=== PATIENT | male | born 1960 | race Caucasian/White ===

== ENCOUNTER 2017-03-14 13:00 | Observation (INO) | payer OTHER ==
[~2017-03-14] VITALS: Ht 172.7 cm; Wt 88.0 kg
[~2017-03-14 13:00] MED LIST: ALBU8.5H3 INH; AMLO10TA62 PO; LOSA1TAB23 PO; METO-104 PO; METO100T93 PO; MULT-806 PO; OMEP-29 PO; PLAVIX; QUET25TA19 PO; TRICOR; [UNRECOGNIZED DRUG - CODE] PO
--- OUTSIDE RECORDS SUMMARY | 2017-03-14 13:14 | XMS REPORT ---
Author Author Alfredo West Organization [employer] Address Unknown Phone Unavailable Care Team Providers Care Forensic Technician Name Role Phone Alfredo West CP Unavailable Allergies No Known Allergies Problems Problem Type Condition Code Onset Dates Condition Status Problem Coronary Artery Disease 414.01 Active Problem Chest pain 786.50 Active Problem Dyslipidemia 272.4 Active Problem Hypertension 401.9 Active Problem Family history of ischemic heart disease V17.3 Active Medications Medication Code System Code Instructions Start Date End Date Status Dosage Lab Order NDC 0 Orders Nov 02, 2015 as directed Results No Known Results Summary Purpose [employer] Submission
--- OUTSIDE RECORDS SUMMARY | 2017-03-14 13:14 | XMS REPORT | Continuity of Care Document ---
Author Author [facility] Organization [facility] Address Unknown Phone Unavailable Allergies Active Description Code Type Severity Reaction Onset Reported/Identified Relationship to Patient Clinical Status Yes NKDA N/A N/A Yes No Known Drug Intolerances No Known Drug Intolerances Drug Allergy Unknown N/A 10/06/2006 Yes No Known Drug Allergies No Known Drug Allergies Drug Allergy Unknown nkda 03/21/2014 Yes No Known Drug Intolerances No Known Drug Intolerances Drug Allergy Unknown . 03/21/2014 Yes No Known Drug Allergies No Known Drug Allergies Drug Allergy Unknown U 03/31/2014 Yes No Known Drug Allergies No Known Drug Allergies Drug Allergy Unknown U 03/31/2014 Yes No Known Allergies No Known Allergies Drug Allergy Unknown N/A 06/10/2016 Medications Problems Date Dx Coded Attending Type Code Diagnosis Diagnosed By 05/13/2016 F M24.431 Recurrent dislocation, right wrist Procedures Code Description Performed By Performed On 37.22 LEFT HEART CARDIAC CATH Alfredo West MD 03/21/2014 88.57 CORONARY ARTERIOGRAM NEC Jenna TREJO, Alfredo 03/21/2014 00.24 INTRAVASCULAR IMAGING OF CORONARY VESSELS Main Daley MD 03/31/2014 00.41 PROCEDURE ON TWO VESSELS Main Daley MD 03/31/2014 00.45 INSERTION OF ONE VASCULAR STENT Main Daley MD 03/31/2014 00.66 PERCUTANEOUS TRANSLUMINAL CORONARY ANGIOPLASTY [PT Main Daley MD 03/31/2014 36.07 INSRT OF DRUG-ELUTING CORON ARTERY STENTS(S) Main Daley MD 03/31/2014 37.22 LEFT HEART CARDIAC CATH Alfredo West MD 04/28/2014 88.53 LT HEART ANGIOCARDIOGRAM Alfredo West MD 04/28/2014 88.56 CORONAR ARTERIOGR-2 CATH Alfredo West MD 04/28/2014 Results Test Result Range CBC - 03/21/14 06:50 MEAN CELL HGB 30.9 pg 27.0-33.0 MEAN CELL HGB CONCENTRATION 35.9 g/dL 32.0-37.0 MEAN CELL VOLUME 85.9 fl 80.0-100.0 RED BLOOD CELL 5.05 m/cumm 4.00-6.00 RED CELL DISTRIBUTION WIDTH 12.9 % 11.0- 15.6 WHITE BLOOD CELL 7.5 k/cumm 5.0-10.0 HEMOGLOBIN 15.6 gm/dL 14.0-18.0 HEMATOCRIT 43.4 % 40.0-54.0 PLATELET COUNT 197 k/cumm 150-400 PROTHROMBIN TIME WITH INR - 03/21/14 06:50 INTERNATIONAL NORMAL RATIO 0.9 0.9-1.1 PROTHROMBIN TIME 10.3 sec 9.3-12.2 PARTIAL THROMBOPLASTIN TIME - 03/21/14 06:50 PARTIAL THROMBOPLASTIN TIME 28 sec 24-36 METABOLIC PANEL, COMPREHN - 03/21/14 06:50 POTASSIUM 3.3 mmol/L 3.5-5.3 EST GFR (MDRD) > 60 mL/min > 59 ANION GAP 5 mmol/L 5-15 EST CrCl (CG) > 60 mL/min > 59 GLUCOSE 157 mg/dL 70-99 CALCIUM 8.4 mg/dL 8.5-10.1 BLOOD UREA NITROGEN 14 mg/dL 7-20 CREATININE 1.0 mg/dL 0.8-1.3 SODIUM 137 mmol/L 135-148 CHLORIDE 102 mmol/L 98-110 AST/SGOT 10 Units/L 10-37 ALT/SGPT 42 Units/L < 66 CARBON DIOXIDE 30 mmol/L 21-32 TOTAL PROTEIN 7.1 gm/dL 6.4-8.2 ALBUMIN 3.7 gm/dL 3.4-5.0 BILI TOTAL 0.4 mg/dL 0.0-1.0 ALKALINE PHOSPHATASE TOTAL 52 IU/L 45- 117 LIPID PANEL - 03/21/14 06:50 CHOLESTEROL/HDL RATIO 8.0 < 5.0 COMMENT LDL CHOLESTEROL TEST NOT PERFORMED mg/dL < 100 TRIGLYCERIDES 548 mg/dL < 150 CHOLESTEROL 223 mg/dL < 200 HDL CHOLESTEROL 28 mg/dL > 39 METABOLIC PANEL, BASIC - 03/31/14 10:40 POTASSIUM 3.7 mmol/L 3.5-5.3 EST GFR (MDRD) > 60 mL/min > 59 ANION GAP 8 mmol/L 5-15 GLUCOSE 184 mg/dL 70-99 CALCIUM 8.8 mg/dL 8.5-10.1 BLOOD UREA NITROGEN 15 mg/dL 7-20 CREATININE 1.0 mg/dL 0.8-1.3 SODIUM 137 mmol/L 135-148 CHLORIDE 103 mmol/L 98-110 CARBON DIOXIDE 26 mmol/L METABOLIC PANEL, BASIC - 04/01/14 06:12 POTASSIUM 4.3 mmol/L 3.5-5.3 EST GFR (MDRD) > 60 mL/min > 59 ANION GAP 5 mmol/L 5-15 GLUCOSE 171 mg/dL 70-99 CALCIUM 9.1 mg/dL 8.5-10.1 BLOOD UREA NITROGEN 17 mg/dL 7-20 CREATININE 1.1 mg/dL 0.8-1.3 SODIUM 139 mmol/L 135-148 CHLORIDE 102 mmol/L 98-110 CARBON DIOXIDE 32 mmol/L - METABOLIC PANEL, BASIC - 04/28/14 10:45 POTASSIUM 3.6 mmol/L 3.5-5.3 EST GFR (MDRD) > 60 mL/min > 59 ANION GAP 9 mmol/L 5-15 GLUCOSE 161 mg/dL 70-99 CALCIUM 9.3 mg/dL 8.5-10.1 BLOOD UREA NITROGEN 17 mg/dL 7-20 CREATININE 1.1 mg/dL 0.8-1.3 SODIUM 139 mmol/L 135-148 CHLORIDE 103 mmol/L 98-110 CARBON DIOXIDE 27 mmol/L - CBC W/DIFF - 06/10/16 13:20 EOSINOPHIL # 0.2 k/cumm 0.1-0.5 EOSINOPHIL % 4 % 2-4 GRANULOCYTE # 3.9 k/cumm 2.0-9.0 GRANULOCYTE % 58 % 50-75 LYMPHOCYTE # 2.0 k/cumm 1.0-4.0 LYMPHOCYTE % 29 % 20-30 MEAN CELL HGB 30.1 pg 27.0-33.0 MEAN CELL HGB CONCENTRATION 36.0 g/dL 32.0-37.0 MEAN CELL VOLUME 83.7 fl 80.0-100.0 MONOCYTE # 0.6 k/cumm 0.1-1.0 MONOCYTE % 9 % 4-6 RED BLOOD CELL 5.15 m/cumm 4.00-6.00 RED CELL DISTRIBUTION WIDTH 12.9 % 11.0- 15.6 WHITE BLOOD CELL 6.7 k/cumm 5.0-10.0 HEMOGLOBIN 15.5 gm/dL 14.0-18.0 HEMATOCRIT 43.1 % 40.0-54.0 PLATELET COUNT 255 k/cumm 150-400 CHEM/HEM PROFILE-BEDSIDE - 06/10/16 13:22 POTASSIUM 3.6 mmol/L 3.5-5.3 METHOD Bedside ANION GAP 15 mmol/L 10-20 METHOD Bedside GLUCOSE 205 mg/dL 70-99 BLOOD UREA NITROGEN 15 mg/dL 7-20 CREATININE 0.8 mg/dL 0.7-1.3 HEMOGLOBIN 15.0 gm/dL 14.0-18.0 HEMATOCRIT 44.0 % 40.0-54.0 SODIUM 136 mmol/L 135-148 CHLORIDE 100 mmol/L 98-110 CARBON DIOXIDE 25 mmol/L 21-32 CALCIUM IONIZED 4.9 mg/dL 4.5-5.3 TROPONIN I BEDSIDE - 06/10/16 13:24 METHOD Bedside TROPONIN I < 0.04 ng/mL < 0.11 Encounters ACCT No. Visit Date/Time Discharge Status Pt. Type Provider Facility Loc./Unit Complaint [id number] 03/31/2014 09:55:00 2013 14:11:00 DIS Outpatient Edi TREJO, Main [facility]
--- OUTSIDE RECORDS SUMMARY | 2017-03-14 13:14 | XMS REPORT ---
Author Author Alfredo West Organization [facility] Address [address] [place] [address] Care Team Providers Care Citrix Systems Administrator Name Role Phone Alfredo West Unavailable [phone] PROBLEMS Type Condition ICD9-CM Code SUD02-JQ Code Onset Dates Condition Status SNOMED Code Problem Family history of ischemic heart disease V17.3 Active 988416267 Problem Chest pain 786.50 Active 34653579 Problem Hypertension 401.9 Active 29020407 Problem CAD (coronary artery disease) I25.10 Active 19914242 Problem Dyslipidemia E78.5 Active 334737863 Problem Dyslipidemia 272.4 Active 805576957 Problem Coronary Artery Disease 414.01 Active 77108166 Problem Hypertension I10 Active 22479608 Problem Family history of ischemic heart disease Z82.49 Active 822333828 ALLERGIES Unknown Allergies SOCIAL HISTORY No smoking Hx information available PLAN OF CARE VITAL SIGNS MEDICATIONS Unknown Medications RESULTS No Results PROCEDURES No Known procedures IMMUNIZATIONS No Known Immunizations
--- OUTSIDE RECORDS SUMMARY | 2017-03-14 13:14 | XMS REPORT ---
Author Author Alfredo West Organization [employer] Address Unknown Phone Unavailable Care Team Providers Care Grease And Tallow Pumper Name Role Phone Alfredo West CP Unavailable Allergies No Known Allergies Problems Problem Type Condition Code Onset Dates Condition Status Problem Hypertension 401.9 Active Problem Family history of ischemic heart disease V17.3 Active Problem Dyslipidemia E78.5 Active Problem Hypertension I10 Active Problem CAD (coronary artery disease) I25.10 Active Problem Coronary Artery Disease 414.01 Active Problem Chest pain 786.50 Active Problem Family history of ischemic heart disease Z82.49 Active Problem Dyslipidemia 272.4 Active Medications No Known Medications Results No Known Results Summary Purpose [employer] Submission
--- OUTSIDE RECORDS SUMMARY | 2017-03-14 13:14 | XMS REPORT ---
Author Author Alfredo West Organization [employer] Address Unknown Phone Unavailable Care Team Providers Care Residency Coordinator Name Role Phone Alfredo West CP Unavailable Allergies, Adverse Reactions, Alerts Substance Reaction Event Type N.K.D.A. Info Not Available Non Drug Allergy Problems Problem Type Condition ICD-9 Code Onset Dates Condition Status Assessment Family history of ischemic heart disease V17.3 Active Assessment Dyslipidemia 272.4 Active Problem Coronary Artery Disease 414.01 Active Problem Chest pain 786.50 Active Problem Dyslipidemia 272.4 Active Assessment Coronary Artery Disease 414.01 Active Assessment Hypertension 401.9 Active Problem Hypertension 401.9 Active Problem Family history of ischemic heart disease V17.3 Active Medications Medication Code System Code Instructions Start Date End Date Status Dosage Nitroglycerin [facility] [address]-77 0.4 MG Sublingual every 0 hrs 1 tablet under the tongue and allow to dissolve as needed Seroquel [facility] [address]-86 25 MG Orally prn 1 tablet Losartan Potassium-HCTZ [facility] [address]-09 100-25 MG Orally Once a day 1 tablet Tricor [facility] 35533734777 145 MG Orally Once a day 1 tablet Albuterol Sulfate HFA [facility] [address]-75 108 (90 Base) MCG/ACT Inhalation prn 2 puffs as needed Aspirin [facility] [address]35 81 MG Orally Once a day 1 tablet multivitamin NDC 0 po qd not defined Pantoprazole [facility] [address]-94 40MG qd Plavix [facility] [address]-53 75 MG Orally Once a day 1 tablet Amlodipine Besylate [facility] [address]-56 10 MG Orally Once a day 1 tablet Procedures Procedure Coding System Code Date Office Visit, Est Pt., Level 4 CPT-4 26585 May 25, 2015 ELECTROCARDIOGRAM, COMPLETE CPT-4 71539 May 25, 2015 Vital Signs Date/Time: May 25, 2015 BMI 30.56 Index Weight 201 lbs Height 68 in Cardiac Monitoring Heart Rate 83 /min Oximetry 98% % Blood Pressure Diastolic 70 mm Hg Blood Pressure Systolic 120 mm Hg Results No Known Results Summary Purpose [employer] Submission
--- OUTSIDE RECORDS SUMMARY | 2017-03-14 13:14 | XMS REPORT ---
Author Author Alfredo West Organization [employer] Address Unknown Phone Unavailable Care Team Providers Care Brick Catcher Name Role Phone Alfredo West CP Unavailable [...]
--- OUTSIDE RECORDS SUMMARY | 2017-03-14 13:14 | XMS REPORT ---
Author Author Alfredo West Organization [employer] Address Unknown Phone Unavailable Care Team Providers Care Food Service Representative Name Role Phone Alfredo West CP Unavailable [...]
--- OUTSIDE RECORDS SUMMARY | 2017-03-14 13:14 | XMS REPORT ---
Author Author Alfredo West Organization [employer] Address Unknown Phone Unavailable Care Team Providers Care Receiving Room Clerk Name Role Phone Alfredo West CP Unavailable Allergies No Known Allergies Problems Problem Type Condition ICD-9 Code Onset Dates Condition Status Problem Coronary Artery Disease 414.01 Active Problem Chest pain 786.50 Active Problem Dyslipidemia 272.4 Active Problem Hypertension 401.9 Active Problem Family history of ischemic heart disease V17.3 Active Medications No Known Medications Results No Known Results Summary Purpose [employer] Submission
--- OUTSIDE RECORDS SUMMARY | 2017-03-14 13:14 | XMS REPORT ---
Author Author Alfredo West Organization [employer] Address Unknown Phone Unavailable Care Team Providers Care Neonatal Social Worker Name Role Phone Alfredo West CP Unavailable [...] Z82.49 Active Problem Dyslipidemia 272.4 Active Medications Medication Code System Code Instructions Start Date End Date Status Dosage Lipitor [facility] [address]-57 20 MG Orally Once a day Nov 27, 2015 1 tablet Results No Known Results Summary Purpose [employer] Submission
--- OUTSIDE RECORDS SUMMARY | 2017-03-14 13:14 | XMS REPORT ---
Author Author Alfredo West Organization [employer] Address Unknown Phone Unavailable Care Team Providers Care Yard Cleaner Name Role Phone Alfredo West CP Unavailable [...]
--- OUTSIDE RECORDS SUMMARY | 2017-03-14 13:15 | XMS REPORT | Referral Summary ---
Author Organization Unknown Address Unknown Phone Unavailable Care Team Providers Care Cloak Room Attendant Name Role Phone Medina Carias Primary Care Physician [phone] Encounter VC Date(s): 12/18/14 - 12/20/14 [facility] [address] [place] [address] Discharge Disposition: Home or Self Care Attending Physician: Franci Muir MD Admitting Physician: Franci Muir MD Vital Signs Most recent to 1 oldest [Reference Range]: Temperature Oral 36.3 degC [35.8-37.3 degC] (12/20/14 11:00 AM) Peripheral Pulse 93 bpm Rate [60-100 bpm] (12/20/14 11:00 AM) Heart Rate Monitored 55 bpm [60-100 bpm] *LOW* (12/18/14 12:10 PM) Respiratory Rate 18 br/min [14-20 br/min] (12/20/14 11:00 AM) Blood Pressure 136/100 mmHg [90-140/60-90 mmHg] (12/20/14 11:00 AM) Mean Arterial 110 mmHg Pressure, Cuff (12/18/14 12:10 PM) Most recent to 1 oldest [Reference Range]: SpO2 95 % (12/20/14 11:00 AM) Problem List Condition Effective Dates Status Health Status Informant Acute Active pain(Confirmed) Acid Active patient reflux(Confirmed) Hypertension(Confirm Active patient ed) Obesity(Confirmed) Active patient Tissue perfusion Active alteration(Confirmed )1 1Problem added automatically by system based on initiation of Tissue Perfusion Cerebral Plan of Care Allergies, Adverse Reactions, Alerts No Known Allergies Medications aspirin 81 mg, Oral, Daily, 0 Refill(s) Start Date: 12/18/14 Status: Ordered Hyzaar 100 mg-25 mg oral tablet 1 tabs, Oral, Daily, # 30 tabs, 0 Refill(s) Start Date: 12/18/14 Status: Ordered multivitamin 1 tabs, Oral, Daily, 0 Refill(s) Start Date: 12/18/14 Status: Ordered Norvasc 10 mg, Oral, Daily, 0 Refill(s) Start Date: 12/18/14 Status: Ordered Plavix 75 mg, Oral, Daily, 0 Refill(s) Start Date: 12/18/14 Status: Ordered Protonix 40 mg, Oral, Daily, 0 Refill(s) Start Date: 12/18/14 Status: Ordered Proventil HFA 2 puffs, Inhalation, q4hr, as needed for wheezing, 0 Refill(s) Start Date: 12/18/14 Status: Ordered SEROquel 25 mg, Oral, Bedtime (once a day), as needed, 0 Refill(s) Start Date: 12/18/14 Status: Ordered Toprol-XL 100 mg, Oral, Daily, 0 Refill(s) Start Date: 12/18/14 Status: Ordered TriCor 145 mg, Oral, Daily, 0 Refill(s) Start Date: 12/18/14 Status: Ordered Tylenol Extra Strength 1,000 mg, Oral, BID, as needed for pain, 0 Refill(s) Start Date: 12/18/14 Status: Ordered Results Hematology Most recent to 1 oldest [Reference Range]: WBC [4.8-10.8 K/uL] 5.7 K/uL (12/19/14 6:27 AM) RBC [4.60-6.20 M/uL] 5.26 M/uL (12/19/14 6:27 AM) Hgb [14.0-18.0 16.1 gm/dL gm/dL] (12/19/14 6:27 AM) Hct [42.0-52.0 %] 45.4 % (12/19/14 6:27 AM) MCV [82.0-99.0 fL] 86.3 fL (12/19/14 6:27 AM) MCH [27.0-32.0 pg] 30.6 pg (12/19/14 6:27 AM) MCHC [32.0-36.0 35.5 gm/dL gm/dL] (12/19/14 6:27 AM) RDW [11.5-14.5 %] 12.7 % (12/19/14 6:27 AM) Platelet [150-400 208 K/uL K/uL] (12/19/14 6:27 AM) MPV [9.4-12.3 fL] 11.6 fL (12/19/14 6:27 AM) Immature 0.6 % Granulocytes (12/18/14 10:14 AM) [0.0-1.0 %] Neutrophils [51-75 70 % %] (12/18/14 10:14 AM) Lymphocytes [20-46 20 % %] (12/18/14 10:14 AM) Monocytes [4-11 %] 6 % (12/18/14 10:14 AM) Eosinophils [0-4 %] 3 % (12/18/14 10: AM) Basophils [0-2 %] 0 % (12/18/14 10:14 AM) Neutro Absolute 4.90 THOUS [1.90-7.00 THOUS] (12/18/14 10:14 AM) Lymph Absolute 1.41 THOUS [0.80-3.30 THOUS] (12/18/14 10:14 AM) [place] Absolute 0.43 THOUS [0.30-1.00 THOUS] (12/18/14 10:14 AM) Eos Absolute 0.19 THOUS [0.00-0.50 THOUS] (12/18/14 10:14 AM) Baso Absolute 0.02 THOUS [0.00-0.20 THOUS] (12/18/14 10:14 AM) Nucleated RBC 0.0 /100 WBC Automated [0 /100 (12/18/14 10:14 AM) WBC] Chemistry Most recent to 1 oldest [Reference Range]: Sodium Lvl [136-144 136 mEq/L mEq/L] (12/20/14 6:11 AM) Potassium Lvl 3.7 mEq/L [3.6-5.1 mEq/L] (12/20/14 6:11 AM) Chloride [99-109 101 mEq/L mEq/L] (12/20/14 6:11 AM) CO2 [22-32 mEq/L] 28 mEq/L (12/20/14 6:11 AM) AGAP [3-20] 7 (12/20/14 6:11 AM) BUN [4-20 mg/dL] 12 mg/dL (12/20/14 6:11 AM) Glucose Lvl [70-100 157 mg/dL mg/dL] *HI* (12/20/14 6:11 AM) Creatinine Lvl 0.84 mg/dL [0.64-1.27 mg/dL] (12/20/14 6:11 AM) eGFR [>60] >60 2 (12/20/14 6:11 AM) Calcium Lvl 9.0 mg/dL [8.6-10.0 mg/dL] (12/20/14 6:11 AM) Albumin Lvl [3.5-4.8 4.2 gm/dL gm/dL] (12/18/14 10:14 AM) Total Protein 6.8 gm/dL [6.1-7.9 gm/dL] (12/18/14 10:14 AM) Globulin [1.9-4.3 2.6 gm/dL gm/dL] (12/18/14 10:14 AM) ALT [17-63 unit/L] 49 unit/L (12/18/14 10:14 AM) AST [15-41 unit/L] 30 unit/L (12/18/14 10:14 AM) Alk Phos [26-104 42 unit/L unit/L] (12/18/14 10:14 AM) Bili Total [0.2-1.2 0.8 mg/dL 1 mg/dL] (12/18/14 10:14 AM) Troponin [<0.06 <0.05 ng/mL ng/mL] (12/19/14 2:23 AM) 1Result Comment: Naproxen, specifically the metabolite O-desmethylnaproxen, may cause spurious elevation in Total Bilirubin levels. 2Result Comment: Multiply eGFR results by 1.21 for race. Immunizations No data available for this section Procedures Procedure Date Related Diagnosis Body Site History of colon resection History of placement of stent for coronary artery disease Rotator cuff repair Social History Social History Type Response Smoking Status Never smoker Assessment and Plan No data available for this section
[2017-03-14 13:36] VITALS: Ht 172.7 cm; Wt 88.0 kg
[2017-03-14 14:06] VITALS: BP 140/79; PULSE 68; RESP 20; TEMP 97.6; O2SAT 96
[2017-03-14] MEDS ORDERED: ATOR20TA59 PO (14:06)
[2017-03-14] MEDS ORDERED: ALBU6.7H INH (14:06)
[2017-03-14] MEDS ORDERED: METR250T PO (14:06)
[2017-03-14] MEDS ORDERED: ZALE10CA PO (14:06)
[2017-03-14] MEDS ORDERED: FLUT9.9S NS (14:06)
[2017-03-14] MEDS ORDERED: ACET-62 PO (14:06)
[2017-03-14] MEDS ORDERED: LEVO500T63 PO (14:06)
[2017-03-14] MEDS ORDERED: ASPI-557 PO (14:06)
[2017-03-14] MEDS ORDERED: FENO145T20 PO (14:06)
[2017-03-14] MEDS ORDERED: DAPA10TA PO (14:06)
[2017-03-14] MEDS ORDERED: METF750T2 PO (14:06)
[2017-03-14] MEDS ORDERED: ALBU2.5V2 AEROSOL (14:06)
[2017-03-14] MEDS ORDERED: PANT40TA PO (14:06)
[2017-03-14] MEDS ORDERED: NORMAL SALINE 1,000 ML IV SCH (15:00)
[2017-03-14 15:16] LABS: BASOPHILS % (AUTO) 0.7 % (0-2); EOSINOPHILS # (AUTO) 0.1 T/MM3 (0-0.5); EOSINOPHILS % (AUTO) 2.3 % (0-4); HCT - HEMATOCRIT 45.6 % (41-53); HGB - HEMOGLOBIN 16.1 GM/DL (13.5-17.5); IMMATURE GRANULOCYTE # (AUTO) 0.02 T/MM3 (0.00-0.03); IMMATURE GRANULOCYTE % (AUTO) 0.4 % (0.0-0.5); LYMPHOCYTES # (AUTO) 1.8 T/MM3 (1-4.8); LYMPHOCYTES % (AUTO) 32.4 % (23-45); MEAN CORPUSCULAR HGB 29.7 UUG (26-34); MEAN CORPUSCULAR HGB CONC(MCHC 35.3 GM/DL (31-37); MEAN PLATELET VOLUME 11.6 UM3 (9.4-12.4); MONOCYTES # (AUTO) 0.5 T/MM3 (0-0.8); MONOCYTES % (AUTO) 8.6 % (0-9.0); NEUTROPHILS #(AUTO)-ABSOLUTE 3.1 T/MM3 (1.8-7.7); NEUTROPHILS % (AUTO) 55.6 % (33-66); RED BLOOD COUNT 5.43 M/MM3 (4.50-5.90); WBC - WHITE BLOOD COUNT 5.6 T/MM3 (4.5-11.0)
[2017-03-14 15:25] LABS: INR 1.16 (0.77-1.03); PROTHROMBIN TIME 12.7 SEC (9.48-12.52); PTT 30.2 SEC (24-36)
[2017-03-14 15:26] LABS: ALBUMIN 4.6 G/DL (3.5-5.0); ALBUMIN/GLOBULIN RATIO 1.6 RATIO (1.1-2.2); ALKALINE PHOSPHATASE 61 U/L (38-126); ALT (SGPT) 57 U/L (21-72); ANION GAP 16 MEQ/L (5-15); AST (SGOT) 31 U/L (17-59); BUN/CREATININE RATIO 23 RATIO (6-26); CALCIUM 9.4 MG/DL (8.4-10.2); CHLORIDE 104 MEQ/L (98-107); CO2 - CARBON DIOXIDE 26 MEQ/L (22-30); CREATININE 0.7 MG/DL (0.8-1.5); GLOMERULAR FILTRATION RATE 117; GLUCOSE 100 MG/DL (75-110); LIPASE 70 U/L (23-300); POTASSIUM 3.5 MEQ/L (3.6-5); SODIUM 146 MEQ/L (134-144); TOTAL PROTEIN 7.4 G/DL (6.3-8.2)
--- NOTE | 2017-03-14 16:16 | DI ---
Indication: ITS.REASON: Acute Abdominal Pain PROCEDURE: KUB: Encounter: Initial Comparison: July 16, 2011 Findings: Multiple surgical clips again seen projecting over the lower abdomen and upper pelvis. The bowel gas pattern is nonobstructive and nonspecific overall with a moderate amount of stool in the right colon. No abnormally dilated small bowel loops appreciated. No obvious free intraperitoneal air on these supine views. Surgical suture projecting over the upper pelvis. Stable probable bone island in the left iliac wing. Impression: No evidence of small bowel obstruction. No acute disease process seen. .
[2017-03-14] MEDS: PANTOPRAZOLE 40mg INJECTION IV SCH (16:27)
--- NOTE | 2017-03-14 16:48 | DI ---
Indication: ITS.REASON: Acute Abdominal Pain PROCEDURE: CT ABD/PELVIS W/O CONTRAST: Encounter: Initial Comparison: KUB from earlier today and CT abdomen/pelvis dated March 22, 2012 Technique: Axial CT images were performed through the abdomen and pelvis without intravenous contrast. Coronal and sagittal two-dimensional reformats. Automated Exposure Control and Iterative Reconstruction dose reducing techniques were utilized. Findings: The lung bases are grossly clear. The liver shows no contour deforming mass on this noncontrast study. The gallbladder is normal. The spleen, pancreas and adrenal glands are within normal limits. The kidneys are normal. No renal or ureteral stones. Surgical clips in the mesentery. No abdominal or pelvic lymphadenopathy. The bladder is normal. Prostate and rectum are unremarkable. Postoperative changes in the rectosigmoid colon. No evidence of bowel obstruction. No significant diverticulosis or evidence of acute diverticulitis. The appendix is not seen and may be surgically absent. Bone windows show a bone island in the left iliac bone with degenerative change in the thoracolumbar spine and multiple old right posterior lower rib fractures. Impression: No acute disease process seen in the abdomen or pelvis. .
[2017-03-14] MEDS ORDERED: POTASSIUM CHLORIDE 20 MEQ in D5NS 1,000 ML IV SCH (17:00)
[2017-03-14 17:18] VITALS: PULSE 68; RESP 20
[2017-03-14] MEDS: METRONIDAZOLE IV SCH (17:20)
[2017-03-14] MEDS: NORMAL SALINE IV SCH (17:20)
[2017-03-14] MEDS ORDERED: NORMAL SALINE 500 ML IV PRN (17:30)
--- NOTE | 2017-03-14 19:33 | NUR ---
PROGRESS NOTE PT IS ALERT AND ORIENTED X3. VITAL SIGNS STABLE, ON RA. THE PT HAS HAD ADEQUATE URINE OUTPUT THIS SHIFT SINCE ADMISSION. THE PT IS UP X1 SBA. DR. HOBBS AND DR. BURDEN WERE CONSULTED FOR THE PT. THIS RN CONTACTED DR. HOBBS AND DISCUSSED PT BRIEFLY. THE PT IS RESTING IN BED AT THIS TIME, WAITING FOR FURTHER PLAN. NO CONCERNS NOTED AT THIS TIME.
--- NOTE | 2017-03-14 19:37 | CONSF ---
DATE OF CONSULTATION 03/14/2017 CONSULTING PHYSICIAN Oswald Stratton MD REQUESTING PHYSICIAN Sha Carias, DO REASON FOR CONSULTATION Abdominal pain. IMPRESSION 1. Left lower quadrant abdominal pain of uncertain etiology. This does not appear to be acute diverticulitis. I would expect to find some sort of inflammation on CT if it were related to diverticulitis. The most likely source is something such as gastroenteritis and symptoms do seem to be triggered by meals. 2. Type 2 diabetes mellitus. 3. Hypertension. RECOMMENDATIONS 1. I think the workup for Timbo's abdominal pain has been thorough and complete. I do not see any additional workup that is necessary. 2. I do not see any need of surgical intervention given his normal lab and normal CT findings. HISTORY OF PRESENT ILLNESS Timbo is a 56-year-old male who was admitted to the hospital for observation. His was present throughout the interview and exam. He started having abdominal pain on , 03/06/2017. His pain was a dull achy pain in the left lower quadrant. His symptoms intensified up through 03/08/2017 when he described it as 8 out of 10 in severity. He would also have episodes of brief sharp shooting pain that radiated more over to the right side. He had noticed more gas and belching. On 03/11/[address] Carias's office and was started on Levaquin and Flagyl. He does feel that these symptoms are worse at night. Symptoms are also worsened by eating. He denies any nausea and vomiting. He had been having fairly normal bowel movements but some of his stools are firm and small and others are loose. He denies actual diarrhea. He did have a bowel movement this morning and in the hospital. He typically has five to six bowel movements a day since his sigmoid colon resection in 2009. He reports some sweats at night. PAST MEDICAL HISTORY 1. Right lung cancer - diagnosed in 2005. 2. Type 2 diabetes mellitus. 3. Hypertension. 4. Gastroesophageal reflux disease. 5. Coronary artery disease status post stenting. PAST SURGICAL HISTORY 1. Tonsillectomy as a child in [place], [place]. 2. Left rotator cuff repair - [address] Mansoor Avalos at [facility] in [place], [place]. 3. Esophagogastroduodenoscopy and colonoscopy - 2005 at [facility] in [place], [place]. 4. Right thoracotomy with right lower lobectomy - 10/07/[address] Rosalio Combs at [facility] in [place], [place]. 5. Total colonoscopy with biopsies - 06/06/[address] Carias at [facility] in [place], [place]. The patient had descending and sigmoid colon diverticulosis. 6. Esophagogastroduodenoscopy with biopsies - 04/03/[address] Carias at [facility]. The patient was found to have reflux esophagitis, antral gastritis, and shallow ulceration of the stomach. 7. Laparotomy with mobilization of the splenic flexure, sigmoid and descending colon resection, and incidental appendectomy - 08/28/[address] Rogers. Procedure was performed for recurrent sigmoid and descending colon diverticulitis. 8. Heart catheterization with stent placement - 03/[address] West. 9. Septoplasty with bilateral submucosal resection of the inferior turbinates - 11/24/[address] Baudilio Singh. 10. Heart catheterization - 07/31/[address] Martin. ALLERGIES No known drug allergies. MEDICATIONS The patient's home medications were reviewed. See the admission medical reconciliation. SOCIAL HISTORY The patient is . He is a nonsmoker. FAMILY HISTORY Mother - colorectal cancer. Sibling - porphyria. REVIEW OF SYSTEMS 10-point review of systems was negative except for History of Present Illness and the following. GENERAL: He reports some lightheadedness. ENDOCRINE: He reports heat intolerance. PSYCHIATRIC: He reports anxiety. PHYSICAL EXAMINATION VITAL SIGNS: Temperature 97.6, pulse 68, blood pressure 140/79, respiratory rate 20, oxygen saturation 96% on room air. GENERAL: The patient is awake, alert, in no acute distress. HEENT: Sclerae clear. Extraocular muscles intact. NECK: Supple with a midline trachea. No lymphadenopathy or thyromegaly are noted. HEART: Regular rate and rhythm. LUNGS: Clear to auscultation bilaterally. ABDOMEN: Soft, tender in the left lower quadrant. No masses, fluid, organomegaly, guarding or rebound are noted. He does have a midline incision from the upper midline down to the pubic symphysis. There are multiple incisional hernias with a larger defect that is broad-based superior to the umbilicus. EXTREMITIES: No clubbing, cyanosis or edema. NEUROLOGIC: Cranial nerves II-XII are grossly intact. PSYCHIATRIC: Normal mood and affect. LABORATORY DATA Lab was reviewed and white blood cell count was normal at 5.6. IMAGING CT scan of the abdomen and pelvis was personally reviewed. No abnormality in the left lower quadrant was noted. Radiology report was also reviewed. [facility]
[2017-03-14 20:13] VITALS: BP 139/83; PULSE 68; RESP 18; TEMP 97.7; O2SAT 97
--- NOTE | 2017-03-14 21:31 | NUR ---
orders during report at shift change, this rn was told that dr. moore, dr. rasmussen, and dr. barone were talking with each other to decide if pt was to stay the night or dismiss tonight. i had not heard from dr. moore by 2114, so i paged dr. moore and was told that he is out to hospitalist. i notified dr. peralta via tiger text of pt wanting to know if he is going to be dismissed. dr. peralta ordered 1999 ada diet, stop current iv fluids, bgms ac and hs, low dose sliding scale of novolog, and 1 gram tylenol q6h prn pain. pt to stay the night for observation. this rn verbalized understanding and orders implemented. will continue to monitor.
[2017-03-14] MEDS ORDERED: ACETAMINOPHEN 500 MG TABLET PO PRN (22:15)
[2017-03-14] MEDS ORDERED: INSULIN ASPART 100 UNIT/ML SQ PRN (22:15)
[2017-03-15 00:44] VITALS: BP 164/93; PULSE 68; RESP 16; TEMP 96.8; O2SAT 97
[2017-03-15] MEDS: METRONIDAZOLE IV SCH ×2 (01:06→09:09)
[2017-03-15] MEDS: NORMAL SALINE IV SCH ×2 (01:06→09:09)
--- NOTE | 2017-03-15 02:07 | NUR ---
pain pt reporting that tylenol is not helping enough for the pain in lower left abdomen. dr. peralta ordered Redford 7.5mg po q6h prn. no other orders at this time.
--- NOTE | 2017-03-15 04:35 | NUR ---
Chart Check 24 hour chart check completed
--- NOTE | 2017-03-15 04:59 | NUR ---
shift summary pt alert and oriented x 3. vss, on ra. pt up with sba-steady gait. pt given tylenol and norco for pain, see emar for times. ivl in right hand and left forearm. 1999 ada diet. pt using urinal. bed locked and low, call light within reach. will continue to monitor.
[2017-03-15 08:08] VITALS: BP 132/85; PULSE 62; RESP 16; TEMP 96.5; O2SAT 98
[2017-03-15] MEDS: PANTOPRAZOLE 40mg INJECTION IV SCH (09:05)
--- NOTE | 2017-03-15 10:54 | NUR ---
CM CM IN TO VISIT WITH PT. CM EXPLAINED ROLE AND PROVIDED CONTACT INFORMATION. PT DENIES HOME NEEDS AND IS AWARE TO CALL CM SHOULD NEEDS ARISE.
[2017-03-15 11:37] VITALS: PULSE 62; RESP 16
[2017-03-15 12:36] LABS: ANION GAP 11 MEQ/L (5-15); BUN/CREATININE RATIO 20 RATIO (6-26); CALCIUM 9.1 MG/DL (8.4-10.2); CHLORIDE 105 MEQ/L (98-107); CO2 - CARBON DIOXIDE 27 MEQ/L (22-30); CREATININE 0.8 MG/DL (0.8-1.5); GLOMERULAR FILTRATION RATE 100; GLUCOSE 123 MG/DL (75-110); POTASSIUM 3.9 MEQ/L (3.6-5); SODIUM 143 MEQ/L (134-144)
[2017-03-15 12:40] LABS: BLOOD, URINE NEGATIVE (NEGATIVE); COLOR,URINE YELLOW (YELLOW); LEUKOCYTE ESTERASE ,URINE NEGATIVE (NEGATIVE); NITRITE,URINE NEGATIVE (NEGATIVE)
[2017-03-15] MEDS ORDERED: PSYL1PAC11 PO (13:10)
[2017-03-15] MEDS ORDERED: HYDR-4246 PO (13:10)
[2017-03-15] MEDS ORDERED: HYOS0.122 PO (13:10)
[2017-03-15] MEDS ORDERED: POLY17PO6 PO (13:10)
[2017-03-15] MEDS ORDERED: LACT1CAP58 PO (13:10)
--- NOTE | 2017-03-15 13:28 | DSPDOC ---
GLEN BE Mary ASSURANCE ASSISTANT 03/15/17 1322: General Date Date DATE: 03/15/17 TIME: 13:18 Attending Physician Dedrick Wiggins DO Admitting Physician Dedrick Wiggins DO Consulting Physician Vishnu Stratton MD Admitting Diagnosis Acute Abdominal Pain Discharge Diagnosis Acute Abdominal Pain - improved Hypernatremia - resolved Hypokalemia - resolved Laboratory Laboratory Tests Test 03/14/17 14:36 03/14/17 22:41 03/15/17 06:29 03/15/17 11:42 White Blood Count 5.6T/MM3 (4.5-11.0) Red Blood Count 5.43M/MM3 (4.50-5.90) Hemoglobin 16.1GM/DL (13.5-17.5) Hematocrit 45.6% (41-53) Mean Corpuscular Volume 84.0UM3 (80-100) Mean Corpuscular Hemoglobin 29.7UUG (26-34) Mean Corpuscular Hemoglobin Concent 35.3GM/DL (31-37) RDW Standard Deviation 41.0FL (36.9-50.2) Platelet Count 200T/MM3 (130-400) Mean Platelet Volume 11.6UM3 (9.4-12.4) Immature Granulocyte % (Auto) 0.4% (0.0-0.5) Neutrophils (%) (Auto) 55.6% (33-66) Lymphocytes (%) (Auto) 32.4% (23-45) Monocytes (%) (Auto) 8.6% (0-9.0) Eosinophils (%) (Auto) 2.3% (0-4) Basophils (%) (Auto) 0.7% (0-2) Absolute Immature Granulocyte (auto 0.02T/MM3 (0.00-0.03) Absolute Neutrophils (auto) 3.1T/MM3 (1.8-7.7) Absolute Lymphocytes (auto) 1.8T/MM3 (1-4.8) Absolute Monocytes (auto) 0.5T/MM3 (0-0.8) Absolute Eosinophils (auto) 0.1T/MM3 (0-0.5) Absolute Basophils (auto) 0.0T/MM3 (0-0.2) Prothromb Time International Ratio 1.16 (0.77-1.03) Activated Partial Thromboplast Time 30.2SEC (24-36) Turbidity < 20 (0-20) Sodium Level 146MEQ/L (134-144) Potassium Level 3.5MEQ/L (3.6-5) Chloride Level 104MEQ/L (98-107) Carbon Dioxide Level 26MEQ/L (22-30) Anion Gap 16MEQ/L (5-15) Blood Urea Nitrogen 16.0MG/DL (9-20) Creatinine 0.7MG/DL (0.8-1.5) Glomerular Filtration Rate Calc 117 BUN/Creatinine Ratio 23RATIO (6-26) Glucose Level 100MG/DL (75-110) Calculated Osmolality 282MOSM/KG (261-280) Calcium Level 9.4MG/DL (8.4-10.2) Total Bilirubin 1.10MG/DL (0.20-1.30) Icterus Index < 2 (0-7) Aspartate Amino Transf (AST/SGOT) 31U/L (17-59) Alanine Aminotransferase (ALT/SGPT) 57U/L (21-72) Alkaline Phosphatase 61U/L (38-126) Troponin I < 0.012ng/ml (0-0.12) Total Protein 7.4G/DL (6.3-8.2) Albumin 4.6G/DL (3.5-5.0) Globulin 2.8G/DL (2.4-3.6) Albumin/Globulin Ratio 1.6RATIO (1.1-2.2) Lipase 70U/L (23-300) Chemistry Specimen Hemolysis < 15 (0-25) Glucometer 90mg/dL (75-110) 83mg/dL (75-110) 120mg/dL (75-110) Test 03/15/17 12:07 03/15/17 12:32 Turbidity < 20 (0-20) Sodium Level 143MEQ/L (134-144) Potassium Level 3.9MEQ/L (3.6-5) Chloride Level 105MEQ/L (98-107) Carbon Dioxide Level 27MEQ/L (22-30) Anion Gap 11MEQ/L (5-15) Blood Urea Nitrogen 16.0MG/DL (9-20) Creatinine 0.8MG/DL (0.8-1.5) Glomerular Filtration Rate Calc 100 BUN/Creatinine Ratio 20RATIO (6-26) Glucose Level 123MG/DL (75-110) Calculated Osmolality 277MOSM/KG (261-280) Calcium Level 9.1MG/DL (8.4-10.2) Icterus Index < 2 (0-7) Chemistry Specimen Hemolysis < 15 (0-25) Urine Collection Type Voided-not cc-midstr Urine Color Yellow (YELLOW) Urine Turbidity Clear (CLEAR) Urine pH 7.0 (5.0-8.0) Urine Specific [place] 1.010 (1.015-1.025) Urine Protein Negative (NEGATIVE) Urine Glucose (UA) 3+ (NEGATIVE) Urine Ketones Negative (NEGATIVE) Urine Blood Negative (NEGATIVE) Urine Nitrite Negative (NEGATIVE) Urine Bilirubin Negative (NEGATIVE) Urine Urobilinogen 1.0EU/DL (NORMAL) Urine Leukocyte Esterase Negative (NEGATIVE) Urinalysis Comment Microscopic not ind. Radiology KUB - moderate stool in right colon; no acute disease process Abd/Pelvis CT - No acute disease process. History of Present Illness Mr. Ghosh was admitted to observation status per Dr. Wiggins for further evaluation of abdominal pain. He was actually started on Levaquin and Flagyl by Dr. Wiggins in the outpatient setting but his pain persisted. He did not have nausea or vomiting; he endorses a hx of IBS-type stools (alternating consistencies). Hospital Course Admitted to observation status. Abdominal CT and KUB failed to show acute pathology. His outpt abx were continued though were given IV. Mild hypernatremia and hypokalemia were corrected with IVF and with supplementation. Dr. Stratton was consulted, and agreed with conservative treatment. On 03/15/17 , the hospitalist service assumed care. His pain was under good control and he felt safe to return home. He was eating and drinking well. He had 2 BM the day of discharge. He still had mild tenderness on palpation to LLQ, but improved overall per pt account. Encouraged to start MiraLAX and fiber supplement, probiotic in outpt setting. Rx Levsin PRN and Dugspur - pt understands to use Dugspur sparingly and assoc. with constipation. He was dc'd home in stable conditions. F/U with Dr. Wiggins in 1-2 wks. Problems: (1) Abdominal pain Code Status Full Code Home Meds Active Scripts Lactobacillus Rhamnosus GG (Culturelle) 1 Each Capsule, 2 CAP PO BID for 20 Days , #80 CAP Prov:GLEN BE ASSURANCE ASSISTANT 03/15/17 Psyllium Husk (with Sugar) (Metamucil Packet) 3.4 Gm Powd.pack, 1 PACKET PO DAILY for 30 Days, PACKET Prov:GLEN BE ASSURANCE ASSISTANT 03/15/17 Polyethylene Glycol 3350 (Miralax) 17 Gm Powd.pack, 17 G PO DAILY for 30 Days, BOTTLE Take 17 Grams (1 capful), by mouth, once a day. Prov:GLEN BE ASSURANCE ASSISTANT 03/15/17 Hyoscyamine Sulfate (Levsin) 0.125 Mg Tablet, 1 TAB PO TID Y for abdominal cramps, #30 TAB 0 Refills Prov:GLEN BE ASSURANCE ASSISTANT 03/15/17 Hydrocodone/Acetaminophen (Dugspur 5-325 Tablet) 5-325 Tablet, 1 TAB PO Q6H Y for PAIN, #14 TAB Prov:GLEN BE ASSURANCE ASSISTANT 03/15/17 Reported Medications Levofloxacin (Levaquin) 500 Mg Tablet, 1 TAB PO DAILY for 10 Days 03/14/17 Metronidazole (Flagyl) 250 Mg Tablet, 1 TAB PO TID for 10 Days 03/14/17 Atorvastatin Calcium (Atorvastatin Calcium) 20 Mg Tablet, 1 TAB PO DAILY, TAB 03/14/17 Dapagliflozin Propanediol (Farxiga) 10 Mg Tablet, 10 MG PO DAILY, TAB 03/14/17 Zaleplon (Sonata) 10 Mg Capsule, 1 CAP PO HS, #30 CAP 03/14/17 Albuterol Sulfate (Albuterol Sulfate) 2.5 Mg/0.5 Ml Vial.neb, 2.5 MG AEROSOL Y for SHORTNESS OF AIR/WHEEZING, VIAL 03/14/17 Albuterol Sulfate (Proventil HFA 90 mcg/actuation) 200 Puff/6.7 G Inha, 2 PUFF INH Q4H Y for SHORTNESS OF AIR/WHEEZING, INHALER 03/14/17 Pantoprazole Sodium (Protonix) 40 Mg Tablet.dr, 40 MG PO ACB for ACID REFLUX, TAB Take 1 tablet, by mouth, one time a day before breakfast. 03/14/17 Metformin HCl (Metformin HCl ER) 750 Mg Tablet, 750 MG PO WB, TAB Take 1 tablet, by mouth, one time a day (with breakfast). 03/14/17 Fenofibrate Nanocrystallized (Fenofibrate) 145 Mg Tablet, 1 TAB PO DAILY, TAB 03/14/17 Aspirin (Aspir 81) 81 Mg Tablet.dr, 1 TAB PO DAILY, TAB 03/14/17 Fluticasone Propionate (Flonase Allergy Relief 50 mcg/actuation Nasal) 9.9 Ml [place].susp, 2 SPRAY NS PRN 03/14/17 Acetaminophen (Acetaminophen) 500 Mg Tablet, 1-2 TAB PO Q6HPRN Y for PAIN, TAB Do not exceed 3,200 mg of acetaminophen in a 24 hours period. 03/14/17 Quetiapine Fumarate (Seroquel) 25 Mg Tablet, 25 MG PO HS for PRN ORDERS, TAB 04/07/14 Multivitamins (Multivitamin) 1 Tab Tablet, 1 TAB PO DAILY 10/13/12 Amlodipine (Norvasc) 10 Mg Tablet, 5 MG PO DAILY 10/13/12 Metoprolol Succinate (Metoprolol Succinate) 100 Mg Tab.sr.24h, 100 MG PO DAILY 10/13/12 Discontinued Reported Medications Omeprazole (Prilosec) 20 Mg Capsule.dr, 20 MG PO DAILY 10/13/12 Face to Face Encounter I met with patient on the day of dismissal and discussed follow up appointments , medications, and safety plan. Discharge Disposition DC home, stable Copies To 1: VISHNU STRATTON MD; DEDRICK WIGGINS DO Documentation Requirements Documenting Diagnosis BMI Low or High, Diabetes BMI Low or High Assoc. dx for low or high BMI: Overweight 25-29.9 Diabetes Diabetes Type: Type 2 Diabetes Is Diabetes Contolled?: Contolled EDUARDO HARDIN MD 03/15/17 1526: Hospital Course I have independently evaluated and examined this patient. I reviewed the chart, the patient's history, and the ASSURANCE ASSISTANT's documented findings as above. We discussed and formulated the assessment and plan as above with additions as below: Patient seen in cross coverage for Dr. Wiggins. Mr. Ghosh reports significant improvement in symptoms overnight although he continues to have very minor constant achy sensation in the left lower quadrant with increased cramping after meals. He otherwise feels well but notes that urine has been darker than usual without dysuria. Respirations are nonlabored and breath sounds clear. Abdominal examination is notable only for minor discomfort on deep palpation in the left lower quadrant without guarding. Urinalysis is unremarkable with normal specific gravity and no bile pigments. Glucosuria noted. Stable for discharge. Complete antibiotics as previously planned, add antispasmodic and fiber supplement recommended due to history of diverticulitis. Patient follow-up with Dr. Wiggins in the office in the near future. Problems: Home Meds Active Scripts Lactobacillus Rhamnosus GG (Culturelle) 1 Each Capsule, 2 CAP PO BID for 20 Days , #80 CAP Prov:GLEN BE ASSURANCE ASSISTANT 03/15/17 Psyllium Husk (with Sugar) (Metamucil Packet) 3.4 Gm Powd.pack, 1 PACKET PO DAILY for 30 Days, PACKET Prov:GLEN BE APRN 03/15/17 Polyethylene Glycol 3350 (Miralax) 17 Gm Powd.pack, 17 G PO DAILY for 30 Days, BOTTLE Take 17 Grams (1 capful), by mouth, once a day. Prov:GLEN BE ASSURANCE ASSISTANT 03/15/17 Hyoscyamine Sulfate (Levsin) 0.125 Mg Tablet, 1 TAB PO TID Y for abdominal cramps, #30 TAB 0 Refills Prov:GLEN BE ASSURANCE ASSISTANT 03/15/17 Hydrocodone/Acetaminophen (Dugspur 5-325 Tablet) 5-325 Tablet, 1 TAB PO Q6H Y for PAIN, #14 TAB Prov:GLEN BE ASSURANCE ASSISTANT 03/15/17 Reported Medications Levofloxacin (Levaquin) 500 Mg Tablet, 1 TAB PO DAILY for 10 Days 03/14/17 Metronidazole (Flagyl) 250 Mg Tablet, 1 TAB PO TID for 10 Days 03/14/17 Atorvastatin Calcium (Atorvastatin Calcium) 20 Mg Tablet, 1 TAB PO DAILY, TAB 03/14/17 Dapagliflozin Propanediol (Farxiga) 10 Mg Tablet, 10 MG PO DAILY, TAB 03/14/17 Zaleplon (Sonata) 10 Mg Capsule, 1 CAP PO HS, #30 CAP 03/14/17 Albuterol Sulfate (Albuterol Sulfate) 2.5 Mg/0.5 Ml Vial.neb, 2.5 MG AEROSOL Y for SHORTNESS OF AIR/WHEEZING, VIAL 03/14/17 Albuterol Sulfate (Proventil HFA 90 mcg/actuation) 200 Puff/6.7 G Inha, 2 PUFF INH Q4H Y for SHORTNESS OF AIR/WHEEZING, INHALER 03/14/17 Pantoprazole Sodium (Protonix) 40 Mg Tablet.dr, 40 MG PO ACB for ACID REFLUX, TAB Take 1 tablet, by mouth, one time a day before breakfast. 03/14/17 Metformin HCl (Metformin HCl ER) 750 Mg Tablet, 750 MG PO WB, TAB Take 1 tablet, by mouth, one time a day (with breakfast). 03/14/17 Fenofibrate Nanocrystallized (Fenofibrate) 145 Mg Tablet, 1 TAB PO DAILY, TAB 03/14/17 Aspirin (Aspir 81) 81 Mg Tablet.dr, 1 TAB PO DAILY, TAB 03/14/17 Fluticasone Propionate (Flonase Allergy Relief 50 mcg/actuation Nasal) 9.9 Ml [place].susp, 2 SPRAY NS PRN 03/14/17 Acetaminophen (Acetaminophen) 500 Mg Tablet, 1-2 TAB PO Q6HPRN Y for PAIN, TAB Do not exceed 3,200 mg of acetaminophen in a 24 hours period. 03/14/17 Quetiapine Fumarate (Seroquel) 25 Mg Tablet, 25 MG PO HS for PRN ORDERS, TAB 04/07/14 Multivitamins (Multivitamin) 1 Tab Tablet, 1 TAB PO DAILY 10/13/12 Amlodipine (Norvasc) 10 Mg Tablet, 5 MG PO DAILY 10/13/12 Metoprolol Succinate (Metoprolol Succinate) 100 Mg Tab.sr.24h, 100 MG PO DAILY 10/13/12 Discontinued Reported Medications Omeprazole (Prilosec) 20 Mg Capsule.dr, 20 MG PO DAILY 10/13/12 Copies To 1: VISHNU STRATTON MD; DEDRICK WIGGINS KAREN D APRN March 15, 2017 13:22 EDUARDO HARDIN MD March 15, 2017 15:26
--- NOTE | 2017-03-15 13:45 | NUR ---
DISCHARGE NURSING NOTE PT WAS DISCHARGED FROM THE HOSPITAL TO HOME AT THIS TIME, AMBULATORY THROUGH THE MAIN HOSPITAL ENTRANCE. THIS RN WENT OVER DISCHARGE INSTRUCTIONS WITH THE PT INCLUDING DISCHARGE DIET, ACTIVITY, MEDICATIONS, FOLLOW-UP APPOINTMENTS AND PRESCRIPTIONS. THE PT VERBALIZED UNDERSTANDING. IV SITE WAS DCD. ALL BELONGINGS PACKED AND SENT WITH PT AT TIME OF DISCHARGE. NO CONCERNS NOTED.
== END 2017-03-15 13:45 | disposition home or self-care (01) ==
LOC: SRG 13:08
PROVIDERS: ADMIT Internal Medicine; ATTEND Internal Medicine
DX: R10.32 Left lower quadrant pain (principal); E87.0 Hyperosmolality and hypernatremia; E87.6 Hypokalemia; E11.9 Type 2 diabetes mellitus without complications; I10 Essential (primary) hypertension; Z95.5 Presence of coronary angioplasty implant and graft; E66.3 Overweight; Z68.29 Body mass index [BMI] 29.0-29.9, adult; K66.0 Peritoneal adhesions (postprocedural) (postinfection); M93.1 Kienbock's disease of adults; Z90.49 Acquired absence of other specified parts of digestive tract; R61 Generalized hyperhidrosis; K21.9 Gastro-esophageal reflux disease without esophagitis; I25.10 Atherosclerotic heart disease of native coronary artery without angina pectoris; Z79.82 Long term (current) use of aspirin; Z79.84 Long term (current) use of oral hypoglycemic drugs; Z79.899 Other long term (current) drug therapy; Z90.2 Acquired absence of lung [part of]; Z85.118 Personal history of other malignant neoplasm of bronchus and lung; Z87.891 Personal history of nicotine dependence
CPT/HCPCS: 36415; 74000; 74176; 80048; 80053; 81003; 82948; 83690; 84484; 85025; 85610; 85730; 96361; 96365; 99218; C9113; J1956; J3480; J7030; J7042; J7050; J7060

== ENCOUNTER → 2017-03-26 22:55 | Observation (INO) ==
--- NOTE | 2017-03-27 07:22 | Progress Note ---
DATE 03/26/2017 FINDINGS Mr. Ghosh is a 56-year-old gentleman whom I was asked to see this evening in consultation by his primary care physician as a result of the patient's history and physical findings of abdominal pain. Upon questioning the patient, he informs me that he has had a component of abdominal pain now for about the last month. Patient states that about a month ago he was awakened and had severe abdominal pain throughout his abdomen. Patient states that he then began to have a component of some nausea and vomiting. Patient states that the pain was quite severe but did eventually dissipate. Patient states that his pain improved for a period of time but then began to reoccur. Over the last several weeks he has been experiencing ongoing pain within his left lower quadrant of his abdomen. Pain is described as constant in nature. Pain at times is made better by "bending over or standing." Denies specific aggravating symptoms. When questioned about any history for fever or chills, the patient states that he has awakened with night sweats at times in the evening. He denies noticing being febrile in nature. He describes his bowel habits as continuing to be fairly normal for him. He does have a prior history for diverticulitis and in 2009 had undergone an open elective sigmoid resection. The patient also informs me that "many years ago I diagnosed him with a lung cancer." The patient states that I did apparently set him up to go to [place] where he underwent a prior right lower lobectomy and has been free of evidence for recurrent lung cancer since that time. Patient informs me that a few weeks ago he did undergo a CT scan of his abdomen and pelvis by his primary care physician for further evaluation of his abdominal pain. The patient states that over the last several days his abdominal pain has continued to increase in nature and is throughout his abdomen. He states the pain is now somewhat radiating in towards his left back. Patient also informed me that he "had to be out of here soon for his daughter was being on Friday. PAST MEDICAL HISTORY Performed by Janak marie. PAST SURGICAL HISTORY Performed by Janak marie. MEDICATIONS Performed by Janak marie. ALLERGIES Performed by Janak marie. SOCIAL HISTORY Performed by Janak marie. FAMILY HISTORY Performed by Janak marie. REVIEW OF SYSTEMS Performed by Janak marie. PHYSICAL EXAMINATION Mr. Ghosh is a 56-year-old gentleman who, upon my entering the room, was sitting upright and was quite conversant with nursing staff and did not appear to be in acute distress. VITALS: Temperature 95.6, pulse 88, respirations 16, blood pressure 158/90, SaO2 95% on room air. HEENT: Normocephalic. Pupils are equal, round and reactive to light and accommodation. NECK: Supple without lymphadenopathy. CHEST: Clear to auscultation bilaterally. HEART: Regular rate and rhythm. Normal S1 and S2 without gallops, murmurs or clicks. ABDOMEN: Visualization of the abdomen reveals a well-healed prior midline surgical incision extending from the subxiphoid region down to the suprapubic region. There is no visible element of prominence along his prior surgical incision to suggest an incisional hernia. Palpation of the abdomen revealed it to be soft throughout. The patient, however, complained of a fair amount of discomfort with a component of some voluntary guarding with palpation throughout his abdomen. He did not really have a specific localized area of tenderness and was tender within the right upper quadrant, epigastric region, left midabdomen. I did not appreciate any evidence for hepatomegaly or other abnormal masses. No damon peritoneal signs were present. EXTREMITIES: Without clubbing, cyanosis, or edema. NEURO: Cranial nerves II-XII grossly intact. Patient is without focal motor or sensory deficits. LABORATORY/RADIOGRAPH EVALUATION The patient had a CBC upon admission and his white count was normal at 6.7. Hemoglobin is normal at 16.4. CMP was obtained and found to be essentially within normal limits. Potassium was 3.4. I did review his prior CT scan from February. CT scan did not reveal any evidence for acute disease process seen within the abdomen or pelvis. ASSESSMENT 56-year-old gentleman with history for diverticulitis in the past. Patient with a several-week history of significant abdominal pain of uncertain etiology. Patient appears at this time to be without acute surgical abdomen. PLAN I will discuss the case with the primary care physician. May go ahead and obtain a small bowel series to document that there is no evidence for a transition zone given his history for nausea, vomiting and severe abdominal pain in the recent past. When I had a briefly discussed this case, by phone with his PCP, it appeared that he had localized tenderness and I was thinking perhaps he could have an epiploic portion of fat that had torsed resulting in localized pain. This evening on examination, however, his pain seems to be more diffuse in nature. Furthermore, I do believe that a diagnostic laparoscopy could be fraught with difficulty given his prior laparotomy and large midline incision. Furthermore, as above, the patient does not appear to have an acute surgical abdomen. MAURICE
--- NOTE | 2017-03-27 08:58 | General Surgery Consult Note ---
Consult date: 03/26/17 Attending Physician: Sha Carias DO Reason for consult: abdominal pain PFSH DM type 2 Right lung cancer 2005 HTN GERD CAD with stents Surgical History: -Heart cath 2014. -Heart cath with stent March 2014. - Septoplasty 11-24-2012- Dr. Argueta. -Sigmoid resection, takedown spenic flexure , incidental appy, Diverticulitis 08-28-2010 Dr. Rogers. -right thoracotomy, RL lobectomy 10-07-2006 Dr. Combs. -EGD 2005 at [place]. -Left Rotator cuff repair 1983. -EGD 04-03-2010 shallow gastric ulcer. -colonoscopy 06-06-2009 diverticulosis, - Dr. Carias Family History: mother - colon cancer sibling- porphoria Smoking status: Never smoker Medications Home Medications Medication Instructions Recorded Confirmed Type Amlodipine Besylate 5 mg PO DAILY #0 10/13/12 03/26/17 History Acetaminophen 1 - 2 tab PO Q6HPRN PRN #0 tab 03/14/17 03/26/17 History Albuterol Neb (0.5%) [Proventil 2.5 mg AEROSOL PRN PRN #0 vial 03/14/17 History Neb (0.5%)] Albuterol Sulfate [Proventil Hfa] 2 puff INH Q4H PRN #0 inhaler 03/14/17 History Aspirin [Aspir 81] 1 tab PO DAILY #0 tab 03/14/17 03/26/17 History Atorvastatin Calcium 1 tab PO DAILY #0 tab 03/14/17 03/26/17 History Dapagliflozin Propanediol [Farxiga] 10 mg PO DAILY #0 tab 03/14/17 03/26/17 History Fluticasone Propionate [Flonase 2 spray NS PRN #0 03/14/17 03/26/17 History Allergy Relief] Metformin Xr [Glucophage Xr] 750 mg PO WB #0 tab 03/14/17 03/26/17 History Pantoprazole Sodium [Protonix] 40 mg PO ACB #0 tab 03/14/17 03/26/17 History Zaleplon [Sonata] 1 cap PO HS #30 cap 03/14/17 03/26/17 History metroNIDAZOLE [Flagyl] 1 tab PO TID 10 Days 03/14/17 03/26/17 History Allergies Allergy/AdvReac Type Severity Reaction Status Date / Time No Known Allergies Allergy Unverified 03/14/17 13:45 Review of Systems 10-point ROS: negative except for HPI - Vital Signs Vital Signs: Last Vital Signs Temp 95.6 F L 03/26/17 19:05 Pulse 88 03/26/17 19:05 Resp 16 03/26/17 19:05 BP 158/90 H 03/26/17 19:05 Pulse Ox 95 03/26/17 19:05 General Surgery Results - Results Labs: 03/26/17 19:46 03/26/17 19:46 Hospital Course Summary Disclaimer: The visit summary below is not to be considered part of the above Progress Note.
== END | disposition home or self-care (01) ==
LOC: MED
PROVIDERS: ADMIT Internal Medicine; ATTEND Internal Medicine